=== PATIENT | female | born 1965 | race Caucasian/White ===

== ENCOUNTER 2020-09-23 20:38 | Emergency (ER) | payer BC, MEDICARE ==
--- NOTE | 2020-09-23 22:01 | EDM.PDOC ---
ED HPI GENERAL MEDICAL PROBLEM - General Chief Complaint: Lower Extremity Injury/Pain Stated Complaint: VARICOSE VEIN RT KNEE Time Seen by Provider: 09/23/20 20:40 Source of Information: Reports: Patient History Limitations: Reports: No Limitations - History of Present Illness INITIAL COMMENTS - FREE TEXT/NARRATIVE: HISTORY AND PHYSICAL: History of present illness: Patient is a 54-year-old female who presents to the ED today with concern of a possible blood clot to her right lower extremity has been ongoing for the past 1 to 2 days. Patient states that over 1 month ago she initially fell on her right knee and had some bruising following the fall. Patient states the knee healed without difficulty but she did have one varicose vein that started become inflamed after the fall. Patient states that the varicose vein was inflamed in a limited area over her mid thigh but states over the past 1 day she started noticing the pain traveling up her leg and into her right groin area. Patient denies any new fall or injury. Patient states that she has a "complex "possible bleeding/clotting disorder that has never been diagnosed that she has seen several heme oncologist for and has been told that they are unsure what is her symptoms. Denies any other symptoms or concerns. Patient denies fever, chills, chest pain, shortness of breath, or cough. Denies headache, neck stiff ness, change in vision, syncope, or near syncope. Denies nausea, vomiting, abdominal pain, diarrhea, constipation, or dysuria. Has not noted any blood in urine or stool. Patient has been eating and drinking appropriately. Review of systems: As per history of present illness and below otherwise all systems reviewed and negative. Past medical history: As per history of present illness and as reviewed below otherwise noncontributory. Surgical history: As per history of present illness and as reviewed below otherwise noncontributory. Social history: See social history for further information Family history: As per history of present illness and as reviewed below otherwise noncontributory. Physical exam: General: Patient is alert, oriented, and in no acute distress. Patient sitting comfortably on exam table. HEENT: Atraumatic, normocephalic, pupils equal and reactive bilaterally, negative for conjunctival pallor or scleral icterus, mucous membranes moist, TMs normal bilaterally, throat clear, neck supple, nontender, trachea midline. No drooling or trismus noted. No meningeal signs. No hot potato voice noted. Lungs: Clear to auscultation, breath sounds equal bilaterally, chest nontender. Heart: S1S2, regular rate and rhythm without overt murmur Abdomen: Soft, nondistended, nontender. Negative for masses or hepatosplenomegaly. Negative for costovertebral tenderness. Pelvis: Stable nontender. Genitourinary: Deferred. Rectal: Deferred. Skin: Intact, warm, dry. No lesions or rashes noted. Extremities: There is an inflamed erythematous varicose vein of the right mid t high with pain to palpation suggestive of possible superficial thrombophlebitis, no warmth to the touch or no edema. DP/PT pulses intact of the RLE with cap refill < 2 seconds. Otherwise, atraumatic, negative for cords or calf pain. Neurovascular unremarkable. Neuro: Awake, alert, oriented. Cranial nerves II through XII unremarkable. Cerebellum unremarkable. Motor and sensory unremarkable throughout. Exam nonfocal. Notes: Discussed importance for follow-up with a primary care provider. Signs and symptoms that would prompt return to the ED thoroughly discussed with patient. Voices understanding and is agreeable to plan of care. Denies any further questions or concerns at this time. Diagnostics: Lower extremity venous ultrasound Therapeutics: None Prescription: None Impression: Superficial thrombophlebitis, right thigh Plan: 1. You can alternate ibuprofen and Tylenol as directed for pain and discomfort. 2. Follow-up with a primary care provider as discussed. Return to the ED as needed and as discussed. Definitive disposition and diagnosis as appropriate pending reevaluation and review of above. right upper leg Pain Score (Numeric/FACES): 6 - Related Data Allergies Allergy/AdvReac Type Severity Reaction Status Date / Time ketorolac [From Toradol] Allergy Itching Verified 09/23/20 20:49 Sulfa (Sulfonamide Allergy Rash Verified 09/23/20 20:49 Antibiotics) sumatriptan [From Imitrex] Allergy Other Verified 09/23/20 20:49 Home Meds: Home Meds Fremanezumab-Vfrm [Ajovy Autoinjector] 225 mg SQ ASDIRECTED 09/23/20 [History] Furosemide 40 mg PO DAILY 09/23/20 [History] Hydrocodone/Acetaminophen [[place] 10-325 Tablet] 1 each PO DAILY 09/23/20 [History] LORazepam [Ativan] 2 mg PO BEDTIME 09/23/20 [History] Onabotulinumtoxina [Botox] 200 unit IJ ASDIRECTED 09/23/20 [History] Ondansetron [Zofran] 4 mg PO ASDIRECTED PRN 09/23/20 [History] Pantoprazole [ProTONIX] 40 mg PO DAILY 09/23/20 [History] Propranolol HCl [Inderal Xl] 80 mg PO DAILY 09/23/20 [History] Temazepam 15 mg PO BEDTIME 09/23/20 [History] estradioL [Estradiol] 2 mg PO DAILY 09/23/20 [History] metFORMIN [Glucophage XR] 500 mg PO BIDMEALS 09/23/20 [History] Past Medical History HEENT History: Reports: Cataract Cardiovascular History: Reports: None Respiratory History: Reports: Asthma Gastrointestinal History: Reports: None Genitourinary History: Reports: Renal Calculus, UTI, 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: Musculoskeletal History: Reports: Back Pain, Chronic, Neck Pain, Chronic Neurological History: Reports: Migraines Psychiatric History: Reports: Depression Endocrine/Metabolic History: Reports: Diabetes, Type II 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 lap band Female Surgical History: Reports: Hysterectomy Musculoskeletal Surgical History: Reports: None Social & Family History - Tobacco Use Tobacco Use Status *Q: Never Tobacco User - Caffeine Use Caffeine Use: Reports: Tea - Recreational Drug Use Recreational Drug Use: No Review of Systems - Review of Systems Review Of Systems: Comprehensive ROS is negative, except as noted in HPI. ED EXAM, GENERAL - Physical Exam Exam: See Below (see dictation) Course - Vital Signs Last Recorded V/S: Last Vital Signs Temp 96.6 F L 09/23/20 20:50 Pulse 86 09/23/20 22:36 Resp 16 09/23/20 22:36 BP 135/75 09/23/20 22:36 Pulse Ox 98 09/23/20 22:36 Departure - Departure Time of Disposition: 22:27 Disposition: Home, Self-Care 01 Clinical Impression: Superficial thrombophlebitis Qualifiers: Superficial thrombophlebitis-Involved body area: lower extremity Laterality: right Qualified Code(s): I80.01 - Phlebitis and thrombophlebitis of superficial vessels of right lower extremity - Discharge Information Referrals: PCP,Not In Area [Primary Care Provider] - Forms: ED Department Discharge Additional Instructions: The following information is given to patients seen in the emergency department who are being discharged to home. This information is to outline your options for follow-up care. We provide all patients seen in our emergency department with a follow-up referral. The need for follow-up, as well as the timing and circumstances, are variable depending upon the specifics of your emergency department visit. If you don't have a primary care physician on staff, we will provide you with a referral. We always advise you to contact your personal physician following an emergency department visit to inform them of the circumstance of the visit and for follow-up with them and/or the need for any referrals to a consulting specialist. The emergency department will also refer you to a specialist when appropriate. This referral assures that you have the opportunity for follow-up care with a specialist. All of these measure are taken in an effort to provide you with optimal care, which includes your follow-up. Under all circumstances we always encourage you to contact your private physician who remains a resource for coordinating your care. When calling for follow-up care, please make the office aware that this follow-up is from your recent emergency room visit. If for any reason you are refused follow-up, please contact the [facility] Department at and asked to speak to the emergency department charge nurse. [facility] [address] [place] [id number] [address] 1. You can alternate ibuprofen and Tylenol as directed for pain and discomfort. 2. Follow-up with a primary care provider as discussed. Return to the ED as needed and as discussed. Sepsis Event Note (ED) - Evaluation Sepsis Screening Result: No Definite Risk
--- NOTE | 2020-09-24 09:50 | US ---
EXAM DATE: 09/23/20 PATIENT'S AGE: 54 Patient: GABRIELA MAR Facility: [facility] Site Site : [id number] Study: US-Extremity Right -09/23/2020 11:06:36 PM Ordering Physician: LUIS M Final Report: INDICATION: Right lower extremity pain TECHNIQUE: Ultrasound venous duplex lower right extremity. Compression venous exam was performed using frey-scale, color Doppler, and spectral Doppler imaging. COMPARISON: None FINDINGS: Sonographic imaging demonstrates the right common femoral, deep femoral, superficial femoral, popliteal, posterior tibial and greater saphenous and the contralateral left common femoral veins to be fully compressible with normal color Doppler blood flow. There is a superficial thrombophlebitis within the anterior thigh just superior to the knee joint. IMPRESSION: No DVT within the right lower extremity. Superficial thrombophlebitis within the anterior thigh just superior to the knee joint. Dictated by Gabriela Castle MD @ Sep 23 2020 11:09PM Signed by: Gabriela Castle MD @09/23/2020 11:09:41 PM (Electronic Signature) Report Signed by Proxy. [facility]ian[facility]
== END 2020-09-23 22:36 | disposition home or self-care (01) ==
LOC: MW.ED 20:38
DX: I80.01 Phlebitis and thrombophlebitis of superficial vessels of right lower extremity (principal); J45.909 Unspecified asthma, uncomplicated; F32.9 Major depressive disorder, single episode, unspecified; E11.9 Type 2 diabetes mellitus without complications; Z88.5 Allergy status to narcotic agent; Z88.2 Allergy status to sulfonamides; Z88.8 Allergy status to other drugs, medicaments and biological substances; Z79.899 Other long term (current) drug therapy
CPT/HCPCS: 93971-26-RT; 93971-RT; 99283; 99283-25